=== PATIENT | female | born 1950 | race Caucasian/White ===

== ENCOUNTER 2016-11-03 19:20 | Observation (INO) | payer MEDICARE, OTHER ==
[~2016-11-03] VITALS: Ht 170.2 cm; Wt 93.6 kg
[2016-11-03] MEDS ORDERED: MIRAPEX 1MG PO (20:11)
[2016-11-03] MEDS ORDERED: EFFEXOR XR75 MG/CAP PO (20:11)
[2016-11-03] MEDS ORDERED: ESTRACE0.5 MG PO (20:12)
[2016-11-03 20:58] LABS: BASO % 0.3 % (0.0-2.0); EOS # 0.1 (0.0-0.7); EOS % 0.8 % (0-4.0); GRAN # 4.3 (1.4-6.5); GRAN % 66.4 % (42.2-75.2); HEMATOCRIT 37.4 % (37.0-47.0); LYMPH # 1.6 (1.2-3.4); LYMPH % 24.1 % (20.0-51.0); MEAN CELL VOLUME 94 fl (80.0-100.0); MEAN CORPUSCULAR HEMOGLOBIN 30 pg (27.0-31.0); MEAN CORPUSCULAR HGB CONC 32 g/dl (33.0-37.0); MONO # 0.5 (0.1-0.6); MONO % 8.1 % (1.7-9.3); PLATELET COUNT 282 K/mm3 (130-400); RED BLOOD COUNT 3.99 M/mm3 (4.10-5.30); REDCELL DISTRIBUTION WIDTH-CV 16.8 % (11.5-14.5); WHITE BLOOD COUNT 6.4 K/mm3 (4.8-10.8)
[2016-11-03 21:00] LABS: HEMOGLOBIN 11.9 g/dl (12.5-16.0)
[2016-11-03 21:06] LABS: PARTIAL THROMBOPLASTIN TIME 26.3 SECONDS (26.0-37.0)
[2016-11-03 21:11] LABS: ADJUSTED CALCIUM 8.5 mg/dL (8.4-10.2); ALANINE AMINOTRANSFERASE 34 U/L (9-52); ALBUMIN 3.7 gm/dL (3.5-5.0); ALKALINE PHOSPHATASE 62 U/L (50-136); ANION GAP 6 mmol/L (7-16); BILIRUBIN,TOTAL 0.6 mg/dL (0.0-1.0); BLOOD UREA NITROGEN 15 mg/dL (7-17); CALCIUM 8.3 mg/dL (8.4-10.2); CARBON DIOXIDE 28 mmol/L (22-30); CHLORIDE 101 mmol/L (98-107); CREATININE, serum 0.94 mg/dL (0.52-1.25); GLUCOSE 72 mg/dL (74-106); POTASSIUM 4.3 mmol/L (3.4-5.0); SODIUM 136 mmol/L (137-145); TOTAL PROTEIN 6.7 gm/dL (6.4-8.2)
[2016-11-03 21:17] LABS: PROTHROMBIN TIME 11.5 SECONDS (9.7-12.8)
[2016-11-03 21:25] LABS: C-REACTIVE PROTEIN < 0.5 mg/dL (0.0-0.9); TROPONIN-I < 0.012 ng/mL (0.000-0.034)
[2016-11-03 22:00] LABS: PROLACTIN < 1.4 ng/mL (3.0-18.6)
[2016-11-03 22:19] VITALS: BP 111/69; PULSE 67
[2016-11-03 22:38] LABS: PH 8 (5-8); URINE APPEARANCE Clear; URINE BILIRUBIN Negative (NEGATIVE); URINE BLOOD Negative (NEGATIVE); URINE COLOR Yellow; URINE GLUCOSE Negative (NEGATIVE); URINE KETONE Negative (NEGATIVE); URINE UROBILINOGEN Negative (NEGATIVE)
[2016-11-03 22:39] LABS: SQUAMOUS EPITHELIAL 0-2 /hpf; URINE RBC 0-2 /hpf; URINE WBC 0-2 /hpf
[2016-11-03 23:59] VITALS: BP 136/97; PULSE 63; TEMP 97
[2016-11-04] VITALS (12 sets, daily range): BP systolic 97–122; BP diastolic 55–79; PULSE 57–71; TEMP 97.6–98.7
[2016-11-04 03:38] LABS: MAGNESIUM 2.2 mg/dL (1.6-2.3)
[2016-11-04 07:21] LABS: CALCIUM 7.6 mg/dL (8.4-10.2); CREATININE, serum 0.88 mg/dL (0.52-1.25); POTASSIUM 4.2 mmol/L (3.4-5.0)
== END 2016-11-04 19:40 | disposition home or self-care (01) ==
LOC: COL.ER 19:20 → MEDICAL 22:52
PROVIDERS: Emergency Medicine; Family Medicine; Nurse Practitioner Family
DX: I95.9 Hypotension, unspecified (principal); R07.89 Other chest pain; G25.81 Restless legs syndrome; D64.9 Anemia, unspecified; Z90.710 Acquired absence of both cervix and uterus; Z87.891 Personal history of nicotine dependence; Z82.49 Family history of ischemic heart disease and other diseases of the circulatory system
CPT/HCPCS: G0378; J2405; J7030; Q9967

== ENCOUNTER 2019-08-17 13:51 | Emergency (ER) | payer MEDICARE ==
[~2019-08-17] VITALS: Ht 170.2 cm; Wt 97.7 kg
[~2019-08-17 13:51] MED LIST: EFFEXOR XR75 MG/CAP PO; ESTRACE0.5 MG PO; MIRAPEX 1MG PO
[2019-08-17 15:19] LABS: MEAN CELL VOLUME 98 fl (80.0-100.0); MEAN CORPUSCULAR HEMOGLOBIN 32 pg (27.0-31.0); MEAN CORPUSCULAR HGB CONC 32 g/dl (33.0-37.0); MEAN PLATELET VOLUME 8.8 fl (7.4-10.4); PLATELET COUNT 351 K/mm3 (130-400); RED BLOOD COUNT 3.79 M/mm3 (4.10-5.30); REDCELL DISTRIBUTION WIDTH-CV 13.7 % (11.5-14.5)
[2019-08-17 15:40] LABS: ALBUMIN 3.7 gm/dL (3.5-5.0); BILIRUBIN,TOTAL 0.8 mg/dL (0.0-1.0); CALCIUM 8.3 mg/dL (8.4-10.2); CREATININE, serum 1.08 (0.52-1.25); POTASSIUM 3.7 mmol/L (3.4-5.0); TOTAL PROTEIN 6.7 gm/dL (6.4-8.2)
[2019-08-17 15:47] LABS: BAND 1 % (0-10); LYMPHOCYTE 52 % (20.0-51.0); NEUTROPHILS 42 % (42.0-75.2)
[2019-08-17 15:50] LABS: PLATELET ESTIMATE NORMAL (NORMAL); STOMATOCYTE 3+
[2019-08-17 15:51] LABS: HYPOCHROMIA 1+
[2019-08-17 15:56] LABS: PROLACTIN 2.7 ng/mL (3.0-18.6)
[2019-08-17 17:44] VITALS: BP 110/60; PULSE 72; TEMP 98.6
== END 2019-08-17 17:44 | disposition home or self-care (01) ==
LOC: COL.ER 13:51
PROVIDERS: Emergency Medicine
DX: G40.909 Epilepsy, unspecified, not intractable, without status epilepticus (principal); N28.9 Disorder of kidney and ureter, unspecified; R55 Syncope and collapse
CPT/HCPCS: J2405; J7030